=== PATIENT | male | born 2000 | race Caucasian/White ===

== ENCOUNTER 2020-10-07 10:50 | Emergency (ER) | payer OTHER ==
[~2020-10-07 10:50] MED LIST: IBUPROFEN600 MG PO; VIBRAMYCIN100 MG PO; ZOFRAN4 MG PO
[2020-10-07 12:31] LABS: HEMOGLOBIN 16.3 gm/dl (14.0-17.5); RED BLOOD COUNT 5.15 M/UL (4.20-5.50); WHITE BLOOD COUNT 8.5 K/UL (4.5-11.0)
[2020-10-07 13:05] LABS: BUN/CREATININE RATIO 15 (0-10)
== END 2020-10-07 14:20 | disposition home or self-care (01) ==
LOC: ER1 10:50
PROVIDERS: Physician Assistant
DX: R00.2 Palpitations (principal); Z90.89 Acquired absence of other organs
CPT/HCPCS: 71046; 80053; 82550; 82553; 83874; 84439; 84443; 84484; 85025; 93005; 99285; J7030

== ENCOUNTER 2021-07-19 15:27 | Emergency (ER) | payer OTHER ==
[2021-07-19 16:10] LABS: HEMOGLOBIN 15.7 gm/dl (14.0-17.5); RED BLOOD COUNT 5.01 M/UL (4.20-5.50); WHITE BLOOD COUNT 8.9 K/UL (4.5-11.0)
[2021-07-19 16:38] LABS: BUN/CREATININE RATIO 10 (0-10)
== END 2021-07-19 18:55 | disposition home or self-care (01) ==
LOC: ER1 15:27
PROVIDERS: Nurse Practitioner
DX: R00.2 Palpitations (principal); R06.02 Shortness of breath; R07.9 Chest pain, unspecified; Z20.822 Contact with and (suspected) exposure to COVID-19
CPT/HCPCS: 0240U; 71045; 80053; 81001; 82550; 82553; 83874; 84484; 85025; 99285